=== PATIENT | male | born 1995 | race African-American/Black ===

== ENCOUNTER 2021-04-20 12:29 | Emergency (ER) | payer OTHER, SELFPAY ==
--- NOTE | 2021-04-20 12:37 | ED.SKABFB ---
HPI - Skin/Abscess/Foreign Bdy General Chief complaint: Skin/Abscess/Foreign Body Stated complaint: Fever Blisters Time Seen by Provider: 04/20/21 12:40 Source: patient, RN notes reviewed and old records reviewed Mode of arrival: ambulatory Limitations: no limitations History of Present Illness HPI narrative: 25-year-old male presents to the [facility] with cold sores to the upper and lower lip. Had been using Abreva for the last 2 days. States the blisters appeared 2 days ago. Also requesting to be tested for STDs. Patient denies any signs or symptoms. Denies any testicular sores, penile sores, burning with urination MD complaint: rash Related Data Allergies Allergy/AdvReac Type Severity Reaction Status Date / Time No Known Allergies Allergy Verified 04/20/21 12:52 Review of Systems Review of Systems: All systems reviewed & are unremarkable except as noted in HPI and below Constitutional: Constitutional: Reports no additional constitutional complaints, Denies chills, Denies fever(s), Denies headache(s) and Denies weakness Eyes: Eyes: Reports no additional eye complaints and Denies change in vision ENT: Reports system reviewed and no additional complaints, except as documented, Denies dysphagia, Denies dizziness, Denies headache(s), Denies nasal congestion and Denies sore throat Cardiovascular: Cardiovascular: Reports no additional cardiovascular complaints, Denies chest pain, Denies syncope and Denies dyspnea Respiratory: Respiratory: Reports no additional respiratory complaints, Denies chest congestion, Denies cough, Denies dyspnea and Denies wheezing Gastrointestinal: Gastrointestinal: Reports no additional gastrointestinal complaints, Denies abdominal pain, Denies dysphagia, Denies nausea and Denies vomiting Genitourinary: Genitourinary: Reports no additional male genitourinary complaints, Denies hematuria, Denies genital lesions, Denies dysuria, Denies penile discharge, Denies testicular pain, Denies urinary frequency and Denies urinary incontinence Musculoskeletal: Musculoskeletal: Reports no additional musculoskeletal complaints and Denies numbness Integumentary/Breasts: Skin/Breast: Reports as per HPI Comments: 2 blisters 1 to the upper lip and lower lip Neurologic: Reports system reviewed and no additional complaints, except as documented, Denies dizziness, Denies syncope, Denies headache(s), Denies focal weakness, Denies numbness and Denies weakness Psychiatric: Psychiatric: Reports no additional psychiatric complaints Allergic/Immunologic: Allergic/Immunologic: Reports no additional allergic/immunologic complaints and Denies wheezing PMFSH Past Medical History Medical History (Updated 04/20/21 @ 19:22 by Ingris Chadwick) Patient denies medical problems Surgical History Surgical History (Updated 04/20/21 @ 19:22 by Ingris Chadwick) No pertinent past surgical history Comments At the time of my signature, I reviewed and agree with the nursing past medical, surgical, social, and family history. There is no relevant family history pertinent to the patient complaint. Exam Const: General: healthy appearing, no acute distress and alert Nutritional Appearance: well nourished Orientation/consciousness: patient oriented x3 Limitations: no limitations HENMT: Head: normal to inspection Ears: external ears normal, TM's normal bilaterally and EAC's normal General nose exam: Normal external nose present and Normal nasal mucous membranes and turbinates present Nose image: 1. Small blister 2. Small blister Face and sinus: normal facial exam, no ecchymosis, no erythema and no edema Mouth: Yes lip abnormal (2 small blisters 1 to the upper 1 to the lower without signs of infection) Throat: posterior oropharynx normal and uvula midline Eyes: Pupils: Equal, round and reactive pupils present Neck: Neck: normal visual inspection, no lymphadenopathy and no meningeal signs Chest: Chest palpation & inspection: nor
[2021-04-20 12:43] VITALS: BP 120/77; PULSE 60; RESP 16; TEMP 36.6; O2SAT 100
[2021-04-20 12:52] VITALS: BP 120/77; PULSE 60; RESP 16; TEMP 36.6; O2SAT 100
== END 2021-04-20 13:00 | disposition home or self-care (01) ==
PROVIDERS: Emergency Provider Nurse Practitioner
DX: B00.1 Herpesviral vesicular dermatitis (principal)
CPT/HCPCS: 87491; 87591; 87661; 99203; G0463